=== PATIENT | male | born 1975 | race African-American/Black ===

== ENCOUNTER 2023-03-20 06:49 | Emergency (ER) | payer MEDICAID ==
[~2023-03-20] VITALS: Ht 175.3 cm; Wt 122.5 kg
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
[2023-03-20] MEDS ORDERED: IBUPROFEN 400 MG TABLET PO ONE (07:30)
[2023-03-20] MEDS ORDERED: IBUPROFEN 400 MG TABLET ONE (07:46)
--- NOTE | 2023-03-20 08:05 | NUR ---
pt refused meds
[2023-03-20 09:48] VITALS: BP 127/77
== END 2023-03-20 10:31 | disposition home or self-care (01) ==
LOC: ER 06:57
DX: R07.89 Other chest pain (principal); V89.2XXA Person injured in unspecified motor-vehicle accident, traffic, initial encounter; Y93.89 Activity, other specified; Y92.89 Other specified places as the place of occurrence of the external cause; Y99.8 Other external cause status
CPT/HCPCS: 71045-TC